=== PATIENT | male | born 1955 | race Caucasian/White ===

== ENCOUNTER 2016-09-18 10:11 | Inpatient (IN) | payer BC ==
[~2016-09-18] VITALS: Ht 165.1 cm; Wt 88.0 kg
[~2016-09-18 10:11] MED LIST: PROVASTATIN PO
[2016-09-18] MEDS ORDERED: ASPI81TA81 PO (12:46)
[2016-09-18] MEDS ORDERED: ATEN50TA PO (12:47)
[2016-09-18] MEDS ORDERED: TRIL135C PO (12:47)
[2016-09-18] MEDS ORDERED: AVOD0.5C PO (12:47)
[2016-09-18] MEDS ORDERED: GABA300C5 PO (12:48)
[2016-09-18] MEDS ORDERED: MULTTAB67 PO (12:48)
[2016-09-18] MEDS ORDERED: LISI10TA3 PO (12:48)
[2016-09-18] MEDS ORDERED: ZOFR4TAB PO (12:49)
[2016-09-18] MEDS ORDERED: OMEP20TA PO (12:49)
[2016-09-18] MEDS ORDERED: PRAV40TA2 PO (12:50)
[2016-09-18] MEDS ORDERED: AMBI10TA PO (12:51)
[2016-09-18] MEDS ORDERED: XANA2TAB2 PO (12:51)
[2016-09-18] MEDS ORDERED: TIZA4TAB PO (12:53)
[2016-09-18] MEDS ORDERED: PERC10TA27 PO (12:54)
[2016-09-18] MEDS ORDERED: VENTAER INH (12:55)
[2016-09-18] MEDS ORDERED: LIDO1PAD52 TOPICAL (12:55)
[2016-09-18] MEDS ORDERED: ADVA500A INH (12:56)
[2016-09-18] MEDS ORDERED: KETO1SPR TOPICAL (12:58)
[2016-09-18] MEDS ORDERED: EMPA1TAB3 PO (12:59)
[2016-09-18] MEDS ORDERED: MIRA3350 PO (13:00)
[2016-09-21 07:55] VITALS: BP 107/83; PULSE 75; RESP 18; TEMP 97.9; O2SAT 96
[2016-09-21] MEDS ORDERED: CHLORHEXIDINE GLUCONATE 4% SOLN 120 ML BTL TOPICAL SCH (08:30)
[2016-09-21] MEDS ORDERED: LACTATED RINGER'S 1000 ML IV PRN (08:30)
[2016-09-21] MEDS ORDERED: ceFAZolin 2 GM PREMIX 50 ML IV SCH (08:30)
[2016-09-21] MEDS ORDERED: METOPROLOL TARTRATE 25 MG TAB PO PRN (08:30)
[2016-09-21] MEDS ORDERED: SODIUM CHLORID 0.9% 500 ML IV PRN (08:30)
[2016-09-21] MEDS ORDERED: CHLORHEXIDINE GLUCONATE 2 % 1 PACK (2 CLOTHS) TOPICAL PRN (08:30)
[2016-09-21] MEDS ORDERED: INSULIN HUMAN REGULAR 1,000 UNITS/10 ML VIAL SQ PRN (08:30)
[2016-09-21] MEDS ORDERED: VANCOMYCIN 1000 MG/NS 250 ML (for <70 kg) IV SCH ×2 (08:30)
[2016-09-21] MEDS ORDERED: DEXAMETHASONE SOD PHOS 20 MG/5 ML VIAL IV SCH (08:30)
[2016-09-21] MEDS ORDERED: PERC10TA27 PO (08:50)
[2016-09-21] MEDS ORDERED: ASPI81CH3 CHEW (08:51)
[2016-09-21] MEDS ORDERED: ENOX40P SQ (08:51)
[2016-09-21] MEDS: ALPRAZolam 1 MG TAB PO SCH ×2 (09:00→21:29)
[2016-09-21] MEDS ORDERED: NALOXONE HCL 0.4 MG/ML AMP IV PRN (09:00)
[2016-09-21] MEDS ORDERED: ONDANSETRON HCL 4 MG/2 ML VIAL IVP PRN (09:00)
[2016-09-21] MEDS ORDERED: BISACODYL 10 MG SUPP RECTAL PRN (09:00)
[2016-09-21] MEDS ORDERED: oxyCODONE/ACETAMINOPHEN 5 MG/325 MG TAB PO PRN (09:00)
[2016-09-21] MEDS ORDERED: diphenhydrAMINE HCL 50 MG/ML VIAL IV PRN (09:00)
[2016-09-21] MEDS ORDERED: ZOLPIDEM TARTRATE 5 MG TAB PO PRN (09:00)
[2016-09-21] MEDS ORDERED: TRANEXAMIC PERI-ARTICULAR 3,000 MG/NS 100 ML P-ARTICULR SCH ×2 (09:00)
[2016-09-21] MEDS ORDERED: ALUMINUM/MAGNESIUM/SIMETH 30 ML CUP PO PRN (09:00)
[2016-09-21] MEDS ORDERED: EXPAREL PERI-ARTICULAR INJECTION (TOTAL VOL. 60 ML) P-ARTICULR SCH ×2 (09:00)
[2016-09-21] MEDS ORDERED: SODIUM CHLORIDE 0.9% FLUSH 5 ML FLUSH IVF PRN (09:00)
[2016-09-21] MEDS: FINASTERIDE 5 MG TAB PO SCH (09:00)
[2016-09-21] MEDS ORDERED: TRANEXAMIC ACID INJ 1,335 MG in SODIUM CHLORIDE 0.9% INJ 100 ML IV SCH (09:00)
[2016-09-21] MEDS ORDERED: GLUCAGON 1 MG/ML VIAL OTHER PRN (09:15)
[2016-09-21] MEDS ORDERED: DEXTROSE 50% IN WATER 50 ML VIAL(D50) IV PRN (09:15)
[2016-09-21] MEDS ORDERED: ALBUTEROL SULFATE 90 MCG/ACT HFA 8 GM INHALER INH PRN (09:15)
[2016-09-21] MEDS ORDERED: FAMOTIDINE 20 MG/2 ML VIAL ONE (09:27)
[2016-09-21] MEDS ORDERED: ACETAMINOPHEN 1000 MG/100 ML VIAL IV ONE (09:27)
[2016-09-21] MEDS ORDERED: HYDROmorphone HCL PF 2 MG/ML VIAL ONE (09:27)
[2016-09-21] MEDS ORDERED: MIDAZOLAM HCL 5 MG/5 ML VIAL ONE (09:27)
[2016-09-21] MEDS ORDERED: KETAMINE HCL 500 MG/5 ML VIAL ONE (09:28)
[2016-09-21] MEDS ORDERED: fentaNYL CITRATE 250 MCG/5 ML AMP ONE (09:28)
[2016-09-21] MEDS ORDERED: GENTAMICIN SULFATE 80 MG/2 ML VIAL IRRIGATION ONE (10:59)
[2016-09-21] MEDS ORDERED: TRANEXAMIC ACID INJ 1,000 MG in SODIUM CHLORIDE 0.9% INJ 100 ML IV ONE (12:00)
[2016-09-21] MEDS ORDERED: NEOSTIGMINE 3 MG/3 ML SYR IV ONE (12:00)
[2016-09-21] MEDS ORDERED: ONDANSETRON HCL 4 MG/2 ML VIAL IV PUSH ONE (12:00)
[2016-09-21] MEDS ORDERED: LACTATED RINGER'S 1000 ML INJ 1,000 ML IV ONE (12:00)
[2016-09-21] MEDS ORDERED: PROPOFOL 200 MG/20 ML AMP IV ONE (12:00)
[2016-09-21] MEDS ORDERED: ePHEDrine/NS 25 MG/5 ML SYR IV ONE (12:00)
[2016-09-21] MEDS ORDERED: Post-op Orders (for Pharmacy) MISC XX ONE (12:25)
[2016-09-21] MEDS ORDERED: DO NOT ADM ANY ANTICOAGULANT DRUGS PRN (12:27)
[2016-09-21] MEDS: SODIUM CHLOR 0.9% 1000 ML INJ 1,000 ML IV SCH ×2 (12:30→18:47)
[2016-09-21] MEDS ORDERED: *MEPERIDINE 25 MG INJ VIAL PERIprocedural Use ONLY ONE (12:51)
[2016-09-21] MEDS: SODIUM CHLORIDE 0.9% FLUSH 5 ML FLUSH IVF SCH ×2 (13:15→21:00)
[2016-09-21] MEDS: INSULIN ASPART SUPPLEMENTAL SCALE SQ SCH ×3 (13:15→21:27)
[2016-09-21] MEDS ORDERED: *ONDANSETRON 4 MG VIAL PERIprocedural Use ONLY ONE (13:21)
--- NOTE | 2016-09-21 13:34 | RADRPT ---
EXAM DATE/TIME: 09/21/2016 12:50 [facility] COMPARISON: No previous studies available for comparison. INDICATIONS : Post total left hip. MEDICAL HISTORY : None. SURGICAL HISTORY : None. ENCOUNTER: Initial ACUITY: 1 day PAIN SCORE: Non-responsive. LOCATION: Left hip. FINDINGS: Left total hip arthroplasty is present. Hardware appears intact. Alignment is anatomic. The adjacent pelvis is focally unremarkable. CONCLUSION: Satisfactory appearance post left SINCERE Michael Hardy MD on September 21, 2016 at 13:31 Board Certified Radiologist. This report was verified electronically.
[2016-09-21 13:46] VITALS: BP 118/86; PULSE 97; RESP 16; TEMP 95.7; O2SAT 96
[2016-09-21] MEDS: oxyCODONE/ACETAMINOPHEN 5 MG/325 MG TAB PO PRN ×2 (14:30→18:29)
--- NOTE | 2016-09-21 15:31 | RADRPT ---
EXAM DATE/TIME: 09/21/2016 10:33 [facility] COMPARISON: No previous studies available for comparison. INDICATIONS : Left hip total anterior arthroplasty. OR. MEDICAL HISTORY : None. SURGICAL HISTORY : None. ENCOUNTER: Initial ACUITY: 1 day PAIN SCORE: Non-responsive. LOCATION: Left hip FINDINGS: The patient is status post a total hip arthroplasty with a bipolar prosthesis. Prosthesis is well-sea bassem. Alignment is anatomic. A fracture is not appreciated. CONCLUSION: Anatomic alignment. Tony Villegas MD FACR Board Certified Radiologist. This report was verified electronically.
[2016-09-21] MEDS: HYDROmorphone HCL PF 2 MG/ML VIAL IV PRN ×2 (15:57→21:30)
[2016-09-21 16:00] VITALS: BP 140/94; PULSE 93; RESP 16; TEMP 95.9; O2SAT 97
[2016-09-21] MEDS: LIDOCAINE HCL 5% PATCH T-DERMAL SCH (16:15)
--- NOTE | 2016-09-21 16:24 | PD.CONS ---
[facility] By Dr. Nagy Reason for Consult Medical management Primary Care Physician No Primary Care Physician Diagnoses: History of Present Illness This is a 61-year-old male with history of left knee pain 2/2 OA. He underwent arthroplasty today by Dr. Nagy who requested consultation to evaluate and manage multiple medical problems. Anesthesia records show he received 1600 mL, EBL 1000 mL and urine output of 300 mL. At this time he complains of left hip pain radiating to his left lateral thigh. He also has history of lower back pain from herniated disc. States he has chronic pain with neuropathy on Percocet, gabapentin, anxiety which is stable on Xanax, asthma/COPD stable on albuterol and Advair, coronary artery disease status post bypass which is also stable with no chest pain, hypertension stable on lisinopril and Lopressor, hyperlipidemia on Pravachol and trilipix, diabetes stable on Gardiance and GERD on Prilosec. All other systems reviewed negative Review of Systems Except as stated in HPI: all other systems reviewed are Neg Past Family Social History Allergies: Coded Allergies: Iodine (Verified Allergy, Severe, 09/21/16) Past Medical History As previously mentioned Past Surgical History As previously mentioned. Appendectomy, coronary stents, hernia repair Reported Medications Avodart, Zofran, lisinopril, gabapentin, Lidoderm patch, Ambien, Xanax, albuterol, atenolol, MiraLAX, Zanaflex, Advair,trilipix, pravastatin, Prilosec, Percocet and jardiance Family History Heart disease Social History Does not smoke or drink Physical Exam Vital Signs Vital Signs Date Time Temp Pulse Resp B/P Pulse Ox O2 Delivery O2 Flow Rate FiO2 09/21/16 13:46 95.7 97 16 118/86 96 09/21/16 13:24 97.9 94 16 116/80 97 Nasal Cannula 3 09/21/16 13:15 96 15 114/83 97 Nasal Cannula 3 09/21/16 13:00 95 16 124/84 97 Nasal Cannula 3 09/21/16 12:45 97 14 123/83 97 Nasal Cannula 3 09/21/16 12:30 97.8 96 16 138/89 97 Simple Mask 6 09/21/16 07:55 97.9 75 18 107/83 96 Physical Exam GENERAL: This is a well-nourished, well-developed patient, in distress due to pain SKIN: No rashes, ecchymoses or lesions. Cool and dry. HEAD: Atraumatic. Normocephalic. No temporal or scalp tenderness. EYES: Pupils equal round and reactive. Extraocular motions intact. No scleral icterus. No injection or drainage. ENT: Nose without bleeding, purulent drainage or septal hematoma. Throat without erythema, tonsillar hypertrophy or exudate. Uvula midline. Airway patent. NECK: Trachea midline. No JVD or lymphadenopathy. Supple, nontender, no meningeal signs. CARDIOVASCULAR: Regular rate and rhythm without murmurs, gallops, or rubs. RESPIRATORY: Clear to auscultation. Breath sounds equal bilaterally. No wheezes , rales, or rhonchi. GASTROINTESTINAL: Abdomen soft, non-tender, nondistended.No guarding. MUSCULOSKELETAL: Extremities without clubbing, cyanosis, or edema. Left hip with dry dressing. No calf tenderness. Negative Homans sign bilaterally. NEUROLOGICAL: Awake and alert. Cranial nerves II through XII intact. Motor and sensory grossly within normal limits. Five out of 5 muscle strength in all muscle groups. Normal speech. Laboratory Outside records reviewed BMP remarkable for sodium 146 potassium 4.7 BUN 23 creatinine 1.05 coags INR 1.0 CBC remarkable for white count was 7.1 hemoglobin of 15.8 platelet count 20/25 urinalysis unremarkable Laboratory Tests Test 09/21/16 08:20 Blood Type A NEGATIVE Antibody Screen NEGATIVE Imaging Last Impressions Hip and Pelvis X-Ray 09/21/16 0847 Signed Impressions: Service Date/Time: Wednesday, September 21, 2016 12:50 - CONCLUSION: Satisfactory appearance post left SINCERE Michael Hardy MD Hip X-Ray 09/21/16 0000 Signed Impressions: Service Date/Time: Wednesday, September 21, 2016 10:33 - CONCLUSION: Anatomic alignment. Tony Villegas MD Assessment and Plan Assessment and Plan This is a 61-year-old male with history of left knee pain 2/2 OA. He underwent arthroplasty today by Dr. Nagy who requested consultation to evaluate and manage multiple medical problems. Anesthesia records show he received 1600 mL, EBL 1000 mL and urine output of 300 mL. At this time he complains of left hip pain radiating to his left lateral thigh. He also has history of lower back pain from herniated disc. Continue postoperative care with wound care, physical therapy, DVT prophylaxis with Lovenox and pain management with Percocet and IV Dilaudid. Incentive spirometry. Because of intraoperative blood loss we will hold BP medications today and repeat CBC and BMP in the morning Chronic pain with neuropathy on Percocet, gabapentin which will be resume in addition to Lidoderm patch. Anxiety which is stable on Xanax Asthma/COPD stable on albuterol and Advair. Oxygen as needed Coronary artery disease status post bypass which is also stable with no chest pain. Restart aspirin when okay by orthopedic surgery and atenolol if he remains hemodynamically stable Hypertension stable. As above we'll hold BP medications secondary to blood loss and consider restarting tomorrow if he remains hemodynamically stable hyperlipidemia on Pravachol and trilifix Diabetes stable on Gardiance . Monitor fingerstick with sliding scale coverage GERD on Prilosec. Discussed Condition With Patient and nursing staff. Home health care versus rehabilitation Jarrell Whittington MD Sep 21, 2016 16:24
[2016-09-21] MEDS ORDERED: BUDESONIDE-FORMOTEROL 160/4.5 MCG INHALER INH PRN (17:45)
[2016-09-21] MEDS: REMOVE OLD LIDOCAINE PATCH T-DERMAL SCH (19:05)
[2016-09-21 20:55] VITALS: BP 103/63; PULSE 101; RESP 17; TEMP 97; O2SAT 95
[2016-09-21] MEDS ORDERED: FLUTICASONE SALMETEROL INH PRN (21:00)
[2016-09-21] MEDS: PANTOPRAZOLE SOD 20 MG DELAYED RELEASE TAB PO SCH (21:29)
[2016-09-22] VITALS (8 sets, daily range): BP systolic 73–150; BP diastolic 49–94; PULSE 67–107; RESP 17–19; TEMP 95.9–98.7; O2SAT 95–98
[2016-09-22] MEDS: oxyCODONE/ACETAMINOPHEN 5 MG/325 MG TAB PO PRN ×5 (00:31→23:07)
[2016-09-22] MEDS: SODIUM CHLOR 0.9% 1000 ML INJ 1,000 ML IV SCH ×2 (04:27→14:47)
[2016-09-22] MEDS: INSULIN ASPART SUPPLEMENTAL SCALE SQ SCH ×4 (06:04→20:21)
--- NOTE | 2016-09-22 08:12 | PD.ORT.PN ---
Subjective Post Op Day #: 1 Subjective Remarks pain in hip tolerable with meds Objective Vitals Vital Signs Date Time Temp Pulse Resp B/P Pulse Ox O2 Delivery O2 Flow Rate FiO2 09/22/16 04:35 98.0 67 18 118/68 95 09/22/16 00:25 97.1 91 17 126/66 98 09/21/16 20:55 97.0 101 17 103/63 95 09/21/16 16:00 95.9 93 16 140/94 97 09/21/16 13:46 95.7 97 16 118/86 96 09/21/16 13:24 97.9 94 16 116/80 97 Nasal Cannula 3 09/21/16 13:15 96 15 114/83 97 Nasal Cannula 3 09/21/16 13:00 95 16 124/84 97 Nasal Cannula 3 09/21/16 12:45 97 14 123/83 97 Nasal Cannula 3 09/21/16 12:30 97.8 96 16 138/89 97 Simple Mask 6 I/O 09/21/16 09/21/16 09/21/16 09/22/16 09/22/16 09/22/16 07:00 15:00 23:00 07:00 15:00 23:00 Intake Total 1855 ml 720 ml 600 ml Output Total 1275 ml 600 ml 1350 ml Balance 580 ml 120 ml -750 ml Intake Oral 255 ml 720 ml 600 ml Other 1600 ml Output Urine Total 275 ml 600 ml 1350 ml Estimated Blood Loss 1000 ml # Bowel Movements 0 0 Imaging Last 24 hours Impressions Hip and Pelvis X-Ray 09/21/16 0847 Signed Impressions: Service Date/Time: Wednesday, September 21, 2016 12:50 - CONCLUSION: Satisfactory appearance post left SINCERE Michael Hardy MD Objective Remarks in chair, nad dressing c/d/i neg homans nvi Assessment & Plan Ortho Post Op Day #: 1 Problem List: Assessment and Plan s/p L SINCERE wbat daily dressing changes lovenox d/c planning to snf rx in chart 3003 signed f/up dr. lynch 2 weeks Nico Britt Sep 22, 2016 08:11
--- NOTE | 2016-09-22 08:14 | HHI.DCPOC ---
Discharge Care Plan Diagnosis: (1) Primary localized osteoarthrosis, pelvic region and thigh Your Health Problems Are: Difficulty with ADL Goals to Promote Your Health * To prevent worsening of your condition and complications * To maintain your health at the optimal level Directions to Meet Your Goals Take your medications as prescribed Follow your dietary instruction Follow activity as directed Keep your appointments as scheduled Take your immunizations and boosters as scheduled If your symptoms worsen call your PCP, if no PCP go to Urgent Care Center or Emergency Room Smoking is Dangerous to Your Health. Avoid second hand smoke Call the 24-hour hour crisis hotline for domestic abuse at Nico Britt Sep 22, 2016 08:14
[2016-09-22] MEDS ORDERED: COMMODE 3-IN-11 MIS (08:15)
[2016-09-22] MEDS ORDERED: WALKER WHEELS/F1 MIS (08:15)
[2016-09-22 08:17] LABS: MEAN CELL VOLUME 86.9 FL (80.0-100.0); MEAN CORPUSCULAR HEMOGLOBIN 27.9 PG (27.0-34.0); MEAN CORPUSCULAR HGB CONC 32.1 % (32.0-36.0); PLATELET COUNT 296 TH/MM3 (150-450); REVIEW FLAG FINAL; WHITE BLOOD COUNT 15.6 TH/MM3 (4.0-11.0)
[2016-09-22] MEDS: ALPRAZolam 1 MG TAB PO SCH ×2 (08:20→21:00)
[2016-09-22] MEDS: FINASTERIDE 5 MG TAB PO SCH (08:21)
[2016-09-22] MEDS: PANTOPRAZOLE SOD 20 MG DELAYED RELEASE TAB PO SCH ×2 (08:21→20:26)
[2016-09-22] MEDS: LIDOCAINE HCL 5% PATCH T-DERMAL SCH (08:22)
[2016-09-22] MEDS: SODIUM CHLORIDE 0.9% FLUSH 5 ML FLUSH IVF SCH ×3 (08:25→20:26)
[2016-09-22 08:52] LABS: POTASSIUM 4.2 MEQ/L (3.5-5.1)
[2016-09-22 08:53] LABS: MAGNESIUM 1.9 MG/DL (1.5-2.5)
[2016-09-22] MEDS: ENOXAPARIN SODIUM 40 MG/0.4 ML SYRINGE SQ SCH (11:47)
[2016-09-22] MEDS ORDERED: FLUMAZENIL 0.5 MG/5 ML VIAL IV PUSH PRN (14:15)
--- NOTE | 2016-09-22 15:13 | HHI.PR ---
Subjective Remarks Follow-up hypertension and diabetes mellitus. Patient has no complaints at this time. Discussed with RN, patient had hypotension improved with IV fluid bolus. Apparently patient has been taking his home medications. He has been noncompliant with his care getting out of bed without assistance and disconnecting IV fluids. Patient has been advised Objective Vitals Vital Signs Date Time Temp Pulse Resp B/P Pulse Ox O2 Delivery O2 Flow Rate FiO2 09/22/16 12:43 87 97/61 09/22/16 12:20 100/70 09/22/16 12:00 97.0 93 18 73/49 96 09/22/16 11:13 3.00 09/22/16 08:00 95.9 98 18 105/55 95 09/22/16 04:35 98.0 67 18 118/68 95 09/22/16 00:25 97.1 91 17 126/66 98 09/21/16 20:55 97.0 101 17 103/63 95 09/21/16 16:00 95.9 93 16 140/94 97 I/O 09/21/16 09/21/16 09/21/16 09/22/16 09/22/16 09/22/16 07:00 15:00 23:00 07:00 15:00 23:00 Intake Total 1855 ml 720 ml 600 ml Output Total 1275 ml 600 ml 1350 ml Balance 580 ml 120 ml -750 ml Intake Oral 255 ml 720 ml 600 ml Other 1600 ml Output Urine Total 275 ml 600 ml 1350 ml Estimated Blood Loss 1000 ml # Bowel Movements 0 0 Result Diagram: 09/22/16 0719 09/22/16 0719 Imaging Last Impressions Hip and Pelvis X-Ray 09/21/16 0847 Signed Impressions: Service Date/Time: Wednesday, September 21, 2016 12:50 - CONCLUSION: Satisfactory appearance post left SINCERE Michael Hardy MD Hip X-Ray 09/21/16 0000 Signed Impressions: Service Date/Time: Wednesday, September 21, 2016 10:33 - CONCLUSION: Anatomic alignment. Tony Villegas MD Objective Remarks GENERAL: This is a well-nourished, well-developed patient, in no distress SKIN: No rashes, ecchymoses or lesions. Cool and dry. HEAD: Atraumatic. Normocephalic. No temporal or scalp tenderness. EYES: Pupils equal round and reactive. Extraocular motions intact. No scleral icterus. No injection or drainage. ENT: Nose without bleeding, purulent drainage or septal hematoma. Throat without erythema, tonsillar hypertrophy or exudate. Uvula midline. Airway patent. NECK: Trachea midline. No JVD or lymphadenopathy. Supple, nontender, no meningeal signs. CARDIOVASCULAR: Regular rate and rhythm without murmurs, gallops, or rubs. RESPIRATORY: Clear to auscultation. Breath sounds equal bilaterally. No wheezes , rales, or rhonchi. GASTROINTESTINAL: Abdomen soft, non-tender, nondistended. No guarding. MUSCULOSKELETAL: Extremities without clubbing, cyanosis, or edema. Left hip with dry dressing. No calf tenderness. Negative Homans sign bilaterally. NEUROLOGICAL: Awake and alert. Cranial nerves II through XII intact. Motor and sensory grossly within normal limits. Five out of 5 muscle strength in all muscle groups. Normal speech. A/P Assessment and Plan This is a 61-year-old male with history of left knee pain 2/2 OA. He underwent arthroplasty by Dr. Nagy who requested consultation to evaluate and manage multiple medical problems. Anesthesia records show he received 1600 mL, EBL 1000 mL and urine output of 300 mL. At this time he complains of improved left hip pain. He also has history of lower back pain from herniated disc. Continue postoperative care with wound care, physical therapy, DVT prophylaxis with Lovenox and pain management with Percocet and IV Dilaudid. Incentive spirometry. Hypotension secondary to medications and blood loss improved with fluid bolus. Repeat CBC within normal limits. Continue IV fluids and closely monitor vital signs. Hx of hypertension. Continue to hold BP medications Chronic pain with neuropathy on Percocet, gabapentin and Lidoderm patch. Anxiety which is stable on Xanax Asthma/COPD stable on albuterol and Advair. Oxygen as needed Coronary artery disease status post bypass which is also stable with no chest pain. Restart aspirin when okay by orthopedic surgery and atenolol if he remains hemodynamically stable hyperlipidemia on Pravachol and trilifix Diabetes stable on Gardiance . Monitor fingerstick with sliding scale coverage GERD on Prilosec. Discharge Planning Not stable for discharge Jarrell Whittington MD Sep 22, 2016 15:12
[2016-09-22] MEDS: DOCUSATE SODIUM 100 MG CAP PO SCH (20:25)
[2016-09-22] MEDS: MULTIVITAMIN TAB PO SCH (20:26)
[2016-09-22] MEDS: REMOVE OLD LIDOCAINE PATCH T-DERMAL SCH (20:28)
[2016-09-23 00:40] VITALS: BP 131/83; PULSE 111; RESP 18; TEMP 100.6; O2SAT 92
[2016-09-23] MEDS: SODIUM CHLOR 0.9% 1000 ML INJ 1,000 ML IV SCH ×2 (00:47→10:47)
[2016-09-23 03:50] VITALS: BP 148/99; PULSE 108; RESP 17; TEMP 99.8; O2SAT 95
[2016-09-23] MEDS: oxyCODONE/ACETAMINOPHEN 5 MG/325 MG TAB PO PRN ×4 (05:05→16:59)
[2016-09-23] MEDS: INSULIN ASPART SUPPLEMENTAL SCALE SQ SCH ×3 (05:09→16:00)
[2016-09-23 07:44] VITALS: BP 133/87; PULSE 109; RESP 18; TEMP 98.4; O2SAT 94
--- NOTE | 2016-09-23 07:49 | PD.ORT.PN ---
Subjective Post Op Day #: 2 Subjective Remarks pain in hip tolerable with meds. difficulty with walking in PT yesterday. Objective Vitals Vital Signs Date Time Temp Pulse Resp B/P Pulse Ox O2 Delivery O2 Flow Rate FiO2 09/23/16 07:44 98.4 109 18 133/87 94 09/23/16 07:08 Room Air 09/23/16 03:50 99.8 108 17 148/99 95 09/23/16 00:40 100.6 111 18 131/83 92 09/22/16 21:00 98.3 107 18 150/94 95 09/22/16 16:00 98.7 95 18 117/73 95 09/22/16 12:43 87 97/61 09/22/16 12:20 100/70 09/22/16 12:00 97.0 93 18 73/49 96 09/22/16 11:13 3.00 09/22/16 08:00 95.9 98 18 105/55 95 I/O 09/22/16 09/22/16 09/22/16 09/23/16 09/23/16 09/23/16 07:00 15:00 23:00 07:00 15:00 23:00 Intake Total 600 ml 600 ml 480 ml 720 ml Output Total 1350 ml 300 ml 900 ml 1020 ml Balance -750 ml 300 ml -420 ml -300 ml Intake Oral 600 ml 600 ml 480 ml 720 ml Output Urine Total 1350 ml 300 ml 900 ml 1020 ml # Voids 1 # Bowel Movements 0 0 0 Result Diagram: 09/22/1671809/22/16 0719 Imaging Last 24 hours Impressions Hip and Pelvis X-Ray 09/21/16 0847 Signed Impressions: Service Date/Time: Wednesday, September 21, 2016 12:50 - CONCLUSION: Satisfactory appearance post left SINCERE Michael Hardy MD Objective Remarks in bed, nad incision no erythema, no drainage neg homans nvi Assessment & Plan Ortho Post Op Day #: 2 Problem List: Assessment and Plan s/p L SINCERE wbat daily dressing changes lovenox OOB and IS d/c planning to snf rx in chart 3008 signed f/up dr. lynch 2 weeks Nico Britt Sep 23, 2016 07:49
[2016-09-23 08:06] LABS: HEMATOCRIT 34.3 % (39.0-51.0); MEAN CELL VOLUME 85.6 FL (80.0-100.0); MEAN CORPUSCULAR HEMOGLOBIN 27.9 PG (27.0-34.0); MEAN CORPUSCULAR HGB CONC 32.6 % (32.0-36.0); PLATELET COUNT 212 TH/MM3 (150-450); RED BLOOD COUNT 4.01 MIL/MM3 (4.50-5.90); RED CELL DISTRIBUTION WIDTH 16.3 % (11.6-17.2); REVIEW FLAG FINAL; WHITE BLOOD COUNT 9.9 TH/MM3 (4.0-11.0)
[2016-09-23] MEDS ORDERED: EMPAGLIFLOZIN 25 MG PO SCH (09:00)
[2016-09-23] MEDS: SODIUM CHLORIDE 0.9% FLUSH 5 ML FLUSH IVF SCH (09:00)
[2016-09-23] MEDS: PANTOPRAZOLE SOD 20 MG DELAYED RELEASE TAB PO SCH (09:02)
[2016-09-23] MEDS: ALPRAZolam 1 MG TAB PO SCH (09:02)
[2016-09-23] MEDS: DOCUSATE SODIUM 100 MG CAP PO SCH (09:02)
[2016-09-23] MEDS: LIDOCAINE HCL 5% PATCH T-DERMAL SCH (09:02)
[2016-09-23] MEDS: MULTIVITAMIN TAB PO SCH (09:02)
[2016-09-23 09:08] VITALS: O2SAT 96
[2016-09-23] MEDS ORDERED: ATENOLOL 50 MG TAB PO SCH (10:15)
--- NOTE | 2016-09-23 10:19 | HHI.PR ---
Subjective Remarks Follow-up hypertension and diabetes mellitus. States he is doing better ambulated today. BP and heart rate starting to creep up. Patient advised we will restart atenolol and other BP medications medications as indicated. Discussed with RN Objective Vitals Vital Signs Date Time Temp Pulse Resp B/P Pulse Ox O2 Delivery O2 Flow Rate FiO2 09/23/16 09:08 96 21 09/23/16 07:44 98.4 109 18 133/87 94 09/23/16 07:08 Room Air 09/23/16 03:50 99.8 108 17 148/99 95 09/23/16 00:40 100.6 111 18 131/83 92 09/22/16 21:00 98.3 107 18 150/94 95 09/22/16 16:00 98.7 95 18 117/73 95 09/22/16 12:43 87 97/61 09/22/16 12:20 100/70 09/22/16 12:00 97.0 93 18 73/49 96 09/22/16 11:13 3.00 I/O 09/22/16 09/22/16 09/22/16 09/23/16 09/23/16 09/23/16 07:00 15:00 23:00 07:00 15:00 23:00 Intake Total 600 ml 600 ml 480 ml 720 ml Output Total 1350 ml 300 ml 900 ml 1020 ml Balance -750 ml 300 ml -420 ml -300 ml Intake Oral 600 ml 600 ml 480 ml 720 ml Output Urine Total 1350 ml 300 ml 900 ml 1020 ml # Voids 1 # Bowel Movements 0 0 0 Result Diagram: 09/23/16 0707 09/22/16 0719 Imaging Last Impressions Hip and Pelvis X-Ray 09/21/16 0847 Signed Impressions: Service Date/Time: Wednesday, September 21, 2016 12:50 - CONCLUSION: Satisfactory appearance post left SINCERE Michael Hardy MD Hip X-Ray 09/21/16 0000 Signed Impressions: Service Date/Time: Wednesday, September 21, 2016 10:33 - CONCLUSION: Anatomic alignment. Tony Villegas MD Objective Remarks GENERAL: This is a well-nourished, well-developed patient, in no distress SKIN: No rashes, ecchymoses or lesions. Cool and dry. HEAD: Atraumatic. Normocephalic. No temporal or scalp tenderness. EYES: Pupils equal round and reactive. Extraocular motions intact. No scleral icterus. No injection or drainage. ENT: Nose without bleeding, purulent drainage or septal hematoma. Throat without erythema, tonsillar hypertrophy or exudate. Uvula midline. Airway patent. NECK: Trachea midline. No JVD or lymphadenopathy. Supple, nontender, no meningeal signs. CARDIOVASCULAR: Slightly fast rate and regular rhythm without murmurs, gallops, or rubs. RESPIRATORY: Clear to auscultation. Breath sounds equal bilaterally. No wheezes , rales, or rhonchi. GASTROINTESTINAL: Abdomen soft, non-tender, nondistended. No guarding. MUSCULOSKELETAL: Extremities without clubbing, cyanosis, or edema. Left hip with dry dressing. No calf tenderness. Negative Homans sign bilaterally. NEUROLOGICAL: Awake and alert. Cranial nerves II through XII intact. Motor and sensory grossly within normal limits. Five out of 5 muscle strength in all muscle groups. Normal speech. A/P Assessment and Plan This is a 61-year-old male with history of left knee pain 2/2 OA. He underwent arthroplasty by Dr. Nagy who requested consultation to evaluate and manage multiple medical problems. Anesthesia records show he received 1600 mL, EBL 1000 mL and urine output of 300 mL. At this time he complains of improved left hip pain. He also has history of lower back pain from herniated disc. Continue postoperative care with wound care, physical therapy, DVT prophylaxis with Lovenox and pain management with Percocet and IV Dilaudid. Incentive spirometry. Hypotension secondary to medications and blood loss improved with fluid bolus. Repeat CBC within normal limits. Hx of hypertension. BP and heart rate creeping up will restart atenolol to avoid withdrawal. Discontinue IV fluids and closely monitor vital signs Chronic pain with neuropathy on Percocet, gabapentin and Lidoderm patch. Anxiety which is stable on Xanax Asthma/COPD stable on albuterol and Advair. Oxygen as needed Coronary artery disease status post bypass which is also stable with no chest pain. Restart aspirin when okay by orthopedic surgery. Atenolol will be restarted hyperlipidemia on Pravachol and trilifix Diabetes stable on Gardiance . Monitor fingerstick with sliding scale coverage GERD on Prilosec. Discharge Planning Discharge when cleared by orthopedic surgery Jarrell Whittington MD Sep 23, 2016 10:19
[2016-09-23] MEDS: ENOXAPARIN SODIUM 40 MG/0.4 ML SYRINGE SQ SCH (11:31)
--- NOTE | 2016-09-23 11:37 | MP ---
cc: CHRISTINE MCDANIEL DATE OF SURGERY: 09/21/2016 PREOPERATIVE DIAGNOSIS Left hip osteoarthritis. POSTOPERATIVE DIAGNOSES Left hip osteoarthritis. PROCEDURE Left total hip arthroplasty. SURGEON Dr. Christine Mcdaniel. MAIL COURIER DENNIS Sheth ANESTHESIA General. ESTIMATED BLOOD LOSS 400 ccs. COMPLICATIONS None. IMPLANTS USED DePuy Corail size 9 Press-Fit standard offset femoral stem, size 50 solid pinnacle Gription cup, 36 mm neutral liner highly cross-linked polyethylene, 36 mm ceramic head, +9 neck. JUSTIFICATION This patient is a 61-year-old male with a history of severe end-stage osteoarthritis involving the left hip. He has severe disabling pain with standing, walking, ambulation, weightbearing activities, even severe pain at rest. He has failed greater than 3 months of nonoperative conservative treatment to include medications, therapy, ambulatory assisted aids, home exercise program, activity modification, weight loss attempts. X-rays of the left hip reveal severe end-stage osteoarthritis, [id number] joint space narrowing, subchondral sclerosis, subchondral cyst, osteophyte formation with superior subluxation. The patient was counseled as to the risks, benefits, alternatives to a total hip arthroplasty. The risks were discussed which include but not limited to anesthesia, bleeding, infection, damage to nerves, blood vessels, pain, stiffness, leg length discrepancy, dislocation, fracture, blood clot, pulmonary embolism, even . The patient's pain is severe, he favored the benefits over the risks and did wish to proceed with surgery. PROCEDURE IN DETAIL A written consent was obtained. The patient was identified by name, taken to the operating room and placed supine on the operating table. General anesthesia was administered as well as 2 grams of IV Ancef and 1 gram of IV vancomycin. The right and left feet were placed in padded traction boots. The left hip and left lower extremity were prepped and draped using isopropyl alcohol and Hibiclens solution and Chloraprep solution. After time-out was performed, a longitudinal incision was made over the anterolateral aspect of the left hip. The fascial layer was incised and dissection was carried over tensor fascia leonel beneath the rectus femoris to allow exposure of the anterior hip capsule. A capsulotomy incision was performed. An oscillating saw was used to perform a femoral neck cut. The osteophytic femoral head and neck component was removed. A 10 blade scalpel was used to excise the labrum. Sequential reaming began at size 45 mm and carried through size 50. Subsequently a solid pinnacle Gription cup was implanted in approximately 45 degrees of abduction and 10 degrees of anteversion. There was good purchase and fixation after insertion of the cup. A screw hole eliminator was placed followed by the neutral liner. The liner was impacted in place and tested for stability. Attention was turned to the femur. The leg was externally rotated extended and adducted. The capsule was released off the undersurface of the greater trochanter to allow for elevation and lateralization of the femur. A box cutting osteotome was used to gain entrance into the intramedullary canal of the femur, followed by canal finder and sequential broaching up to size 9. Calcar planer was used to plane the calcar. Trial head and neck combinations were evaluated and final components implanted in place. With the current implants the leg could achieve external rotation of 70 degrees and extension all the way down to the ground without evidence of anterior instability or impingement. Fluoroscopic imaging showed appropriate implantation of components. The surgical wound was thoroughly irrigated with sterile saline pulse lavage antibiotic impregnated solution. The fascial layer was closed with #1 Vicryl suture, subcutaneous layer with 2-0 Vicryl suture, skin was closed with Dermabond. Sterile dressing was applied. The patient tolerated the procedure well with no intraoperative complications noted. Dung Britt, physician pastrycook's assistant certified was present during the entire procedure to include patient positioning, the procedure itself. The medical necessity of physician pastrycook's assistant was indicated in this case due to the complexity of the procedure. He assisted with appropriate manipulation of the leg and also retraction of muscle, tendon, bone, neurovascular structure. He assisted with both preparation of bone and also implantation of the prosthetic replacement. MD SANJUANITA Laurent/MER /12:13 PM /11:18 AM
[2016-09-23 11:51] VITALS: BP 106/69; PULSE 105; RESP 18; TEMP 97.7; O2SAT 91
== END 2016-09-23 18:22 | DRG 470 ==
LOC: HSDI 09-21 07:55 → N06A 09-21 13:43
PROVIDERS: ADMIT Orthopaedic Surgery Sports Medicine; ATTEND Orthopaedic Surgery Sports Medicine
PROC: 0SRB04A Replacement of Left Hip Joint with Ceramic on Polyethylene Synthetic Substitute, Uncemented, Open Approach (ICD-10-PCS; principal; 2016-09-21 09:50)
DX: M16.12 Unilateral primary osteoarthritis, left hip (principal); G62.9 Polyneuropathy, unspecified; I10 Essential (primary) hypertension; J44.9 Chronic obstructive pulmonary disease, unspecified; I25.10 Atherosclerotic heart disease of native coronary artery without angina pectoris; Z95.1 Presence of aortocoronary bypass graft; G89.29 Other chronic pain; F41.9 Anxiety disorder, unspecified; K21.9 Gastro-esophageal reflux disease without esophagitis; E78.5 Hyperlipidemia, unspecified; E11.9 Type 2 diabetes mellitus without complications; Z79.84 Long term (current) use of oral hypoglycemic drugs; Z91.19 Patient's noncompliance with other medical treatment and regimen; I95.2 Hypotension due to drugs; M54.5 Low back pain
CPT/HCPCS: 73502; 76000; 80048; 82948; 83735; 85027; 86850; 86900; 86901; 94150; C1776; C9290; J0131; J0690; J1100; J1170; J1200; J1580; J1650; J1815; J2175; J2250; J2405; J2710; J3010; J3370; J7030; J7050; J7120

== ENCOUNTER 2016-12-10 10:19 | Emergency (ER) | payer BC ==
[~2016-12-10] VITALS: Ht 167.6 cm; Wt 95.0 kg
[~2016-12-10 10:19] MED LIST changes: +ADVA500A INH; +AMBI10TA PO; +ASPI81CH3 CHEW; +ATEN50TA PO; +AVOD0.5C PO; +COMMODE 3-IN-11 MIS; +EMPA1TAB3 PO; +ENOX40P SQ; +GABA300C5 PO; +KETO1SPR TOPICAL; +LIDO1PAD52 TOPICAL; +LISI10TA3 PO; +MIRA3350 PO; +MULTTAB67 PO; +OMEP20TA PO; +PERC10TA27 PO; +PRAV40TA2 PO; +TIZA4TAB PO; +TRIL135C PO; +VENTAER INH; +WALKER WHEELS/F1 MIS; +XANA2TAB2 PO; +ZOFR4TAB PO
[2016-12-10 10:21] VITALS: BP 142/85; PULSE 80; RESP 20; TEMP 98.2; O2SAT 96
--- NOTE | 2016-12-10 10:37 | PD ---
HPI Chief Complaint: Back/ Neck Pain or Injury Time Seen by Provider: 10:33 Travel History International Travel<30 days: No Contact w/Intl Traveler<30days: No Traveled to known affect area: No History of Present Illness HPI Patient comes in requesting a note to be off of work until he is cleared by his neurosurgeon. Patient states he's been dealing with chronic back pain for several years and has been receiving injections. Patient states he had a hip replacement done recently and was in physical therapy that has been discontinued. Patient reports he is in pain management and takes Percocet as well as gabapentin for his chronic pain. Patient states he just needs a note for work saying that he is unable to perform his job duties. He states his pain is worse first thing in the morning and improves after he takes his Percocet and gabapentin. Denies any recent falls, loss change in bowel or bladder, numbness or tingling anywhere, fevers, or IV drug use. History Past Medical Histgory Hx Cancer: No Hx Chemotherapy: No Hx Radiation Therapy: No Social History Alcohol Use: No Tobacco Use: No Allergies-Medications (Allergen,Severity, Reaction): Coded Allergies: iodine (Unverified Allergy, Severe, 11/10/16) potassium iodide (Unverified Allergy, Severe, 11/10/16) povidone-iodine (Unverified Allergy, Severe, 11/10/16) sodium iodide (Unverified Allergy, Severe, 11/10/16) sodium iodide (Unverified Allergy, Severe, 11/10/16) Reported Meds & Prescriptions Reported Meds & Active Scripts Active Commode 3-in-1 (Device) 1 Mis Mis 1 Ea .ROUTE DIRECTED Walker with Front Wheels (Device) 1 Mis Mis 1 Ea .ROUTE DIRECTED Aspirin 81 Low Dose (Aspirin) 81 Mg Chew 81 Mg CHEW BID Lovenox Inj (Enoxaparin Sodium) 40 Mg/0.4 Ml Syr 40 Mg SQ DAILY Percocet (Oxycodone-Acetaminophen) 10-325 mg Tab 1 Tab PO Q4H PRN Reported Miralax Powder (Polyethylene Glycol 3350 Powder) 17 Gm Powd 17 Gm PO DAILY Mix and dissolve one measuring cap-ful (17 grams) in water or juice. Jardiance (Empagliflozin) 25 Mg Tab 25 Mg PO DAILY Sprix (Ketorolac Tromethamine) 15.75 Mg/[place] Spr 15.75 Mg TOPICAL 4-6 X A DAY Advair Diskus Inh (Fluticasone-Salmeterol Inh) 500-50 Mcg/Blist Aer 1 Puff INH BID PRN Rinse mouth after use. Ventolin Hfa 18 GM Inh (Albuterol Sulfate) 90 Mcg/Act Aer 2 Puff INH Q4-6H PRN Lidocaine Patch 12 HR (Lidocaine) 5 % Patch 1 Patch TOPICAL DAILY Remove patch after 12 hours Percocet (Oxycodone-Acetaminophen) 10-325 mg Tab 1 Tab PO TID Tizanidine (Tizanidine HCl) 4 Mg Tab 4 Mg PO BID Xanax (Alprazolam) 2 Mg Tab 2 Mg PO BID Ambien (Zolpidem Tartrate) 10 Mg Tab 10 Mg PO HS PRN Pravastatin 40 Mg Tab 40 Mg PO DAILY Zofran (Ondansetron HCl) 4 Mg Tab 4 Mg PO Q8HR PRN Omeprazole 20 Mg Tab 20 Mg PO BID Multiple Vitamin 1 Tab 1 Tab PO DAILY Lisinopril 10 Mg Tab 10 Mg PO BID Gabapentin 300 Mg Cap 300 Mg PO TID Avodart (Dutasteride) 0.5 Mg Cap 0.5 Mg PO DAILY Trilipix (Choline Fenofibrate DR) 135 Mg Capdr 135 Mg PO DAILY Atenolol 50 Mg Tab 50 Mg PO BID [Provastatin] 80 Mg PO HS Review of Systems Except as stated in HPI: all other systems reviewed are Neg Physical Exam Narrative GENERAL: Well-developed, overly nourished, in no acute distress, and non-ill appearing. SKIN: Focused skin assessment warm and dry. HEAD: Atraumatic. Normocephalic. EYES: Pupils equal and round. EOMI. No scleral icterus. No injection or drainage. ENT: No nasal bleeding or discharge. Mucous membranes pink and moist. NECK: Trachea midline. Supple. No nuclear rigidity. RESPIRATORY: No accessory muscle use. No respiratory distress. MUSCULOSKELETAL: No obvious deformities. No clubbing. No cyanosis. No edema. Full range of motion. No tenderness or crepitus over midline lumbar spine. Straight leg test negative bilaterally. NEUROLOGICAL: Awake and alert. No obvious cranial nerve deficits. Motor grossly within normal limits. Normal speech. PSYCHIATRIC: Appropriate mood and affect; insight and judgment normal. Data Data Last Documented VS Vital Signs Date Time Temp Pulse Resp B/P (MAP) Pulse Ox O2 Delivery O2 Flow Rate FiO2 12/10/16 10:21 98.2 80 20 142/85 (104) 96 Room Air MDM Medical Screen Exam Complete: Yes Emergency Medical Condition: No Narrative Course History and physical exam findings are not consistent with an emergent medical condition. He was given the option of receiving additional care, but has declined. Therefore the appropriate counseling recommendations were discussed with the patient and he was instructed to follow-up with his primary care physician as soon as possible for reevaluation. Patient was also informed of community resources from which he can obtain additional care. He is agreeable and verbalizes an understanding of the proposed plan. The patient states he will immediately return to the emergency department if his current complaints do not improve, new symptoms arise, or emergent condition develops. Patient ambulated out of the emergency department without difficulty. Primary Impression: Encounter for medical screening examination Disposition: [facility]-ED USE ONLY Condition: Stable Daniel Giron Dec 10, 2016 10:37
== END 2016-12-10 11:03 | disposition left against medical advice (07) ==
LOC: NETRI 10:19
DX: M54.9 Dorsalgia, unspecified (principal); G89.29 Other chronic pain
CPT/HCPCS: 99281